=== PATIENT | female | born 1980 | race Caucasian/White ===

== ENCOUNTER 2021-04-19 01:52 | Emergency (ER) | payer OTHER ==
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
[2021-04-19] MEDS ORDERED: NORCO 5/325 MG ONE (02:53)
[2021-04-19] MEDS: NORCO 5/325 MG PO ONE (02:53)
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
[2021-04-20 17:07] VITALS: BP 117/75; PULSE 63; O2SAT 97
== END 2021-04-19 03:23 | disposition home or self-care (01) ==
LOC: ED 01:52 → MERGE 01:52 → ED 03:23
DX: S16.1XXA Strain of muscle, fascia and tendon at neck level, initial encounter (principal); V49.88XA Car occupant (driver) (passenger) injured in other specified transport accidents, initial encounter; S60.222A Contusion of left hand, initial encounter; S60.221A Contusion of right hand, initial encounter
CPT/HCPCS: 71046; 72125; 73130; 99285; A9270-GY